=== PATIENT | male | born 1995 | race American Indian/Alaskan Native ===

== ENCOUNTER 2017-02-03 21:45 | Emergency (ER) | payer SELFPAY ==
[2017-02-03] MEDS ORDERED: TETRACAINE 0.5% OU ONE (23:22)
[2017-02-03] MEDS ORDERED: FUL-GLO OP ONE (23:23)
--- NOTE | 2017-02-04 | Emergency Department Report ---
ED Eye Problem HPI - General Chief complaint: Eye Problems Stated complaint: L EYE IRRITATION/SWELLING Time Seen by Provider: 02/03/17 23:37 Source: patient Mode of arrival: Ambulatory Limitations: No Limitations - History of Present Illness Initial comments: This is a 21-year-old male nontoxic, well nourished in appearance, no acute signs of distress presented to the ED complaining of left upper eyelid swelling and itching times one day. Patient stated he woke up with eyelid swelling but denies any trauma or injury to the eye or eyelid. Patient denies any sick contact. Denies crusting. Denies visual changes or blurred vision. Patient denies any chest pain, shortness of breath, fever, chills, stiff neck, eye pain , blurred vision, visual changes, headache. Denies any allergies or significant past medical history. MD chief complaint: other (blepharitis) -: Gradual, days(s) (1) Onset Description: sudden Location: left eye Place: home If Injury: none Eye Symptoms: itching Severity scale (0 -10): 0 Consistency: constant Associated Symptoms: none. denies: headache, neck pain, nausea/vomiting, cough , rhinorrhea, fever, shortness of breath Treatments Prior to Arrival: none - Related Data Previous Rx's Medication Instructions Recorded Last Taken Type Erythromycin [Erythromycin Ophth 10 applic OS DAILY #1 tube 02/04/17 Unknown Rx Oint] Allergies Allergy/AdvReac Type Severity Reaction Status Date / Time No Known Allergies Allergy Unverified 03/19/14 11:32 ED Review of Systems ROS: Stated complaint: L EYE IRRITATION/SWELLING Other details as noted in HPI Constitutional: denies: chills, fever Eyes: denies: eye pain, eye discharge, vision change ENT: denies: ear pain, throat pain Respiratory: denies: cough, shortness of breath, wheezing Cardiovascular: denies: chest pain, palpitations Endocrine: no symptoms reported Gastrointestinal: denies: abdominal pain, nausea, diarrhea Genitourinary: denies: urgency, dysuria Musculoskeletal: denies: back pain, joint swelling, arthralgia Skin: denies: rash, lesions Neurological: denies: headache, weakness, paresthesias Psychiatric: denies: anxiety, depression Hematological/Lymphatic: denies: easy bleeding, easy bruising ED Past Medical Hx - Past Medical History Hx Asthma: Yes (as a child) - Surgical History Past Surgical History?: No - Social History Smoking Status: Never Smoker - Medications Home Medications: Home Medications Medication Instructions Recorded Confirmed Last Taken Type Erythromycin [Erythromycin Ophth 10 applic OS DAILY #1 tube 02/04/17 Unknown Rx Oint] ED Physical Exam - General Limitations: No Limitations General appearance: alert, in no apparent distress - Head Head exam: Present: atraumatic, normocephalic, normal inspection - Eye Eye exam: Present: normal appearance, PERRL, EOMI. Absent: scleral icterus, conjunctival injection, nystagmus, periorbital swelling, periorbital tenderness Pupils: Present: normal accommodation - Expanded Eye Exam Expanded Eyelids: Normal Inspection: Left, Laceration: Left Pupils: Regular, Round: Left, Reactive: Left Sclera/Conjunctival: Normal Inspection: Left Visual acuity (R) = 20/: 50 (patient stated wears glasses) Visual acuity (L) = 20/: 100 (patient stated wears glasses) With correction: No - ENT ENT exam: Present: normal exam, normal orophraynx, mucous membranes moist, TM's normal bilaterally, normal external ear exam - Expanded ENT Exam Expanded Ear exam: Present: normal external inspection Mouth exam: Present: normal external inspection, tongue normal. Absent: drooling, trismus, muffled voice, tongue elevation Teeth exam: Present: normal inspection Throat exam: Positive: normal inspection. Negative: tonsillar erythema, tonsillomegaly, tonsillar exudate, R peritonsillar mass, L peritonsillar mass - Neck Neck exam: Present: normal inspection, full ROM. Absent: tenderness, meningismus, lymphadenopathy, thyromegaly - Respiratory Respiratory exam: Present: normal lung sounds bilaterally. Absent: respiratory distress, wheezes, rales, rhonchi, stridor, chest wall tenderness, accessory muscle use, decreased breath sounds, prolonged expiratory - Cardiovascular Cardiovascular Exam: Present: regular rate, normal rhythm, normal heart sounds. Absent: systolic murmur, diastolic murmur, rubs, gallop - GI/Abdominal GI/Abdominal exam: Present: soft, normal bowel sounds. Absent: distended, tenderness, guarding, rebound, rigid, diminished bowel sounds - Rectal Rectal exam: Present: deferred - Extremities Exam Extremities exam: Present: normal inspection, full ROM, normal capillary refill. Absent: tenderness, pedal edema, joint swelling, calf tenderness - Back Exam Back exam: Present: normal inspection, full ROM. Absent: tenderness, CVA tenderness (R), CVA tenderness (L), muscle spasm, paraspinal tenderness, vertebral tenderness, rash noted - Neurological Exam Neurological exam: Present: alert, oriented X3, CN II-XII intact, normal gait, reflexes normal - Psychiatric Psychiatric exam: Present: normal affect, normal mood - Skin Skin exam: Present: warm, dry, intact, normal color. Absent: rash - Other Other exam information: Under Hyman lamp, I used fluorescein and tetracaine to examine cornea for corneal abrasion or foreign body, negative for coronary abrasion or foreign body noted upon exam. ED Course Vital Signs 02/03/17 22:20 Temperature 98.2 F Pulse Rate 52 L Respiratory 17 Rate Blood Pressure 152/94 Blood Pressure 152/94 [Left] O2 Sat by Pulse 99 Oximetry - Reevaluation(s) Reevaluation #1: 02/04/17 00:01 Patient is able to speak in full sentences with no signs of distress noted. ED Medical Decision Making - Medical Decision Making Ed course: This is a 21-year-old male that presents with left blepharitis 1- patient was examined by myself. Under Hyman lamp, I used fluorescein and tetracaine to examine cornea for corneal abrasion or foreign body, negative for coronary abrasion or foreign body noted upon exam. 2- patient was instructed to use warm compresses to the eyes much as possible and patient be treated with erythryomycin ointment to the site. 3- At time time of discharge, the patient does not seem toxic or ill in appearance. No acute signs of distress noted. Patient agrees to discharge treatment plan of care. No further questions noted by the patient. 4- patient was instructed to follow up with sales service representative in 3-5 days or symptoms such as blurred vision, visual changes, pus, drainage, fever, chills, nausea or vomiting chest pain or shortness of breath return to emergency room as soon as possible. Critical care attestation.: If time is entered above; I have spent that time in minutes in the direct care of this critically ill patient, excluding procedure time. ED Disposition Clinical Impression: Blepharitis, left eye Qualifiers: Blepharitis type: unspecified type Eyelid: upper Qualified Code(s): H01.004 - Unspecified blepharitis left upper eyelid Disposition: DC-01 TO HOME OR SELFCARE Is pt being admited?: No Does the pt Need Aspirin: No Condition: Stable Instructions: Blepharitis (ED), Erythromycin (Into the eye) Additional Instructions: Use warm compresses to the left upper eyelid as much as possible. Take erythromycin left upper eyelid as prescribed. follow up with sales service representative in 3-5 days or symptoms such as blurred vision, visual changes, pus, drainage, fever, chills, nausea or vomiting chest pain or shortness of breath return to emergency room as soon as possible. Prescriptions: Erythromycin [Erythromycin Ophth Oint] 10 applic OS DAILY #1 tube Referrals: PRIMARY CAREMD [Primary Care Provider] - 3-5 Days JOSE LUIS JANSEN MD [Staff Physician] - 3-5 Days [facility] [Outside] - 3-5 Days [facility] [place] [Outside] - 3-5 Days Forms: Work/School Release Form(ED)
[2017-02-04 01:45] VITALS: BP 143/81
== END 2017-02-04 01:45 | disposition home or self-care (01) ==
LOC: ED 21:45
DX: H01.004 Unspecified blepharitis left upper eyelid (principal); J45.909 Unspecified asthma, uncomplicated
CPT/HCPCS: 99283

== ENCOUNTER 2019-03-03 23:36 | Emergency (ER) | payer SELFPAY ==
[2019-03-04] MEDS ORDERED: FLEXERIL PO ONE (00:54)
[2019-03-04] MEDS ORDERED: IBUPROFEN PO ONE (00:54)
--- NOTE | 2019-03-04 01:11 | Emergency Department Report ---
ED Back Pain/Injury HPI - General Chief Complaint: Headache Stated Complaint: MUSCLE PAIN Time Seen by Provider: 03/04/19 00:39 Source: patient Limitations: No Limitations - History of Present Illness Initial Comments: 23 YO MALE WOKE UP WITH MUSCLE SPASM, IT FRIGHTENED HIM AND HE WOKE HIS DAD. HE STATES HE WORKED TOO HARD AT WORK TODAY. DENIES CP OR SOB ON ARRIVAL. STATES HE HAS A HEADACHE AND STIFFNESS IN HIS BACK. NO FEVER OR CHILLS. NO N/V/D. 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 HE IS AMBULATORY VSS - Related Data Previous Rx's Medication Instructions Recorded Last Taken Type Cyclobenzaprine [Flexeril] 10 mg PO TID PRN #10 tablet 03/04/19 Unknown Rx Ibuprofen [Motrin] 800 mg PO Q8HR PRN #30 tablet 03/04/19 Unknown Rx predniSONE [Deltasone] 20 mg PO DAILY #5 tablet 03/04/19 Unknown Rx Allergies Allergy/AdvReac Type Severity Reaction Status Date / Time No Known Allergies Allergy Unverified 03/19/14 11:32 ED Review of Systems ROS: Stated complaint: MUSCLE PAIN Other details as noted in HPI Comment: All other systems reviewed and negative ED Past Medical Hx - Past Medical History Medical history: no medical history Surgical history: no surgical history ED Back Pain Physical Exam - Exam General: Vital signs noted. No distress. Alert and acting appropriately. Back/Abdomen: No Abdominal Tenderness Neuro: Yes Normal Sensation, Yes Normal DTR's, Yes Normal Gait, No Motor Weakness ED Course Vital Signs 03/03/19 23:40 Temperature 98.0 F Pulse Rate 59 L Respiratory 18 Rate Blood Pressure 126/84 O2 Sat by Pulse 99 Oximetry ED Medical Decision Making - Medical Decision Making MUSCLE PAIN WORSE W MOVEMENT IN OTHERWISE HEALTHY MALE MEDICATED IN ER DC HOME WITH DC PLAN OF CARE AND PCP FOLLOW UP Vital Signs 03/03/19 23:40 Temperature 98.0 F Pulse Rate 59 L Respiratory 18 Rate Blood Pressure 126/84 O2 Sat by Pulse 99 Oximetry Critical care attestation.: If time is entered above; I have spent that time in minutes in the direct care of this critically ill patient, excluding procedure time. ED Disposition Clinical Impression: Muscle spasm Disposition: DC-01 TO HOME OR SELFCARE Is pt being admited?: No Does the pt Need Aspirin: No Condition: Stable Instructions: Tension Headache (ED), Musculoskeletal Pain (ED) Additional Instructions: WARM COMPRESSES HYDRATE WELL WITH WATER MEDS ORDERED TODAY Referrals: MINGO BRIGHT MD [Staff Physician] - 3-5 Days Forms: Work/School Release Form(ED) Time of Disposition: 01:51
[2019-03-04 02:00] VITALS: BP 126/74
== END 2019-03-04 01:59 | disposition home or self-care (01) ==
LOC: ED 23:36
DX: M62.830 Muscle spasm of back (principal)